=== PATIENT | male | born 1995 | race Hispanic/Latino ===

== ENCOUNTER 2019-06-22 04:45 | Emergency (ER) | payer SELFPAY | END 2019-06-22 05:50 | disposition home or self-care (01) | LOC: ERS 04:45 → EDBD 04:45 → ERS 05:50 | DX: S60.812A Abrasion of left wrist, initial encounter (principal); S60.811A Abrasion of right wrist, initial encounter; F41.9 Anxiety disorder, unspecified; X08.8XXA Exposure to other specified smoke, fire and flames, initial encounter | CPT/HCPCS: 99284 ==

== ENCOUNTER 2019-11-05 17:47 | Emergency (ER) | payer OTHER | END 2019-11-05 18:30 | LOC: ERS 17:47 | DX: T16.2XXA Foreign body in left ear, initial encounter (principal); T16.1XXA Foreign body in right ear, initial encounter; F31.9 Bipolar disorder, unspecified | CPT/HCPCS: 69200 ==

== ENCOUNTER 2020-02-07 00:12 | Emergency (ER) | payer OTHER | END 2020-02-07 00:49 | LOC: ERS 00:12 | DX: S30.843A External constriction of scrotum and testes, initial encounter (principal); F20.9 Schizophrenia, unspecified; F31.9 Bipolar disorder, unspecified; W49.02XA String or thread causing external constriction, initial encounter | CPT/HCPCS: 99284 ==